=== PATIENT | female | born 1940 | race Caucasian/White ===

== ENCOUNTER → 2017-12-24 | Outpatient (CLI) | payer OTHER ==
[~2017-12-24] MED LIST: ASPI81CH6 CHEW; ATOR10TA15 PO; ENOX40P SQ; HYDR-3288 PO; LEVO150T7 PO; LYRI150C PO; MIRA50TA PO; MONT10TA4 PO; NALO1TAB2 PO; OMEP40CA2; ZOFR4TAB3 SL
== END ==
LOC: CPRE 08:43
PROVIDERS: ATTEND Orthopaedic Surgery Sports Medicine
DX: M17.11 Unilateral primary osteoarthritis, right knee (principal)

== ENCOUNTER 2018-01-03 05:55 | Observation (INO) | payer MEDICARE, OTHER ==
[~2018-01-03] VITALS: Ht 167.6 cm; Wt 86.6 kg
[~2018-01-03 05:55] MED LIST changes: -ASPI81CH6 CHEW; -ENOX40P SQ; -HYDR-3288 PO; -NALO1TAB2 PO; -ZOFR4TAB3 SL
[2018-01-03] MEDS ORDERED: DEXAMETHASONE SOD PHOS 20 MG/5 ML VIAL ONE (06:37)
[2018-01-03] MEDS ORDERED: ceFAZolin 2 GM PREMIX 50 ML ONE (06:37)
[2018-01-03] MEDS ORDERED: METOPROLOL TARTRATE 25 MG TAB PO PRN (06:45)
[2018-01-03] MEDS ORDERED: TRANEXAMIC PERI-ARTICULAR 3,000 MG/NS 100 ML P-ARTICULR SCH ×2 (06:45)
[2018-01-03] MEDS ORDERED: TRANEXAMIC ACID IV SCH (06:45)
[2018-01-03] MEDS ORDERED: POVIDONE IODINE 7.5% SCRUB 118 ML BOTTLE TOPICAL SCH (06:45)
[2018-01-03] MEDS ORDERED: ceFAZolin 2 GM PREMIX 50 ML IV SCH (06:45)
[2018-01-03] MEDS ORDERED: CHLORHEXIDINE GLUCONATE 2 % 1 PACK (2 CLOTHS) TOPICAL PRN (06:45)
[2018-01-03] MEDS ORDERED: VANCOMYCIN 1000 MG/NS 250 ML (for <70 kg) IV SCH ×2 (06:45)
[2018-01-03] MEDS ORDERED: CHLORHEXIDINE GLUCONATE 4% SOLN 120 ML BTL TOPICAL SCH (06:45)
[2018-01-03] MEDS ORDERED: LACTATED RINGER'S 1000 ML IV PRN (06:45)
[2018-01-03] MEDS ORDERED: POVIDONE IODINE 5% (ANTISEPSIS KIT) 4 APPLICATIONS EACH NARE PRN (06:45)
[2018-01-03] MEDS ORDERED: SODIUM CHLORID 0.9% 500 ML IV PRN (06:45)
[2018-01-03] MEDS ORDERED: SODIUM CHLORIDE 0.9% IV SCH (06:45)
[2018-01-03] MEDS ORDERED: ACETAMINOPHEN 1000 MG/100 ML 100 ML IV ONE (06:52)
[2018-01-03 06:58] VITALS: PULSE 58
[2018-01-03] MEDS ORDERED: ENOX40P SQ (07:00)
[2018-01-03] MEDS ORDERED: ASPI81CH6 CHEW (07:00)
[2018-01-03] MEDS ORDERED: HYDR-3288 PO (07:01)
[2018-01-03] MEDS ORDERED: GENTAMICIN SULFATE 80 MG/2 ML VIAL ONE (07:03)
[2018-01-03] MEDS ORDERED: DEXAMETHASONE SOD PHOS 20 MG/5 ML VIAL IV PUSH SCH (07:15)
[2018-01-03] MEDS ORDERED: EXPAREL PERI-ARTICULAR INJECTION (TOTAL VOL. 60 ML) P-ARTICULR SCH ×4 (07:15)
[2018-01-03] MEDS ORDERED: BUPIVACAINE HCL PF 0.5% 30 ML VIAL ONE ×2 (07:50→07:51)
[2018-01-03] MEDS ORDERED: MIDAZOLAM HCL 5 MG/5 ML VIAL ONE (07:50)
[2018-01-03] MEDS: MONTELUKAST SODIUM 10 MG TAB PO SCH (09:00)
[2018-01-03] MEDS: ATORVASTATIN 10 MG TAB PO SCH (10:00)
[2018-01-03] MEDS ORDERED: Post-op Orders (for Pharmacy) XX ONE (10:00)
[2018-01-03] MEDS: SODIUM CHLOR 0.9% 1000 ML INJ 1,000 ML IV SCH ×2 (10:00→21:41)
[2018-01-03] MEDS ORDERED: ACETAMINOPHEN/HYDROcodone 325 MG/7.5 MG TAB PO PRN (10:00)
[2018-01-03] MEDS: PREGABALIN 75 MG CAP PO SCH ×2 (10:15→21:00)
[2018-01-03] MEDS ORDERED: BISACODYL 10 MG SUPP RECTAL PRN (10:15)
[2018-01-03] MEDS ORDERED: diphenhydrAMINE HCL 50 MG/ML VIAL IV PUSH PRN (10:15)
[2018-01-03] MEDS ORDERED: DO NOT ADM ANY ANTICOAGULANT DRUGS PRN (10:18)
[2018-01-03] MEDS: LEVOTHYROXINE SODIUM 150 MCG TAB PO SCH (10:30)
[2018-01-03] MEDS ORDERED: *morphine SULFATE 10 MG/ML PERIprocedure ONLY ONE (10:58)
--- NOTE | 2018-01-03 11:12 | RADRPT ---
EXAM DATE/TIME: 01/03/2018 10:49 [place] COMPARISON: No previous studies available for comparison. INDICATIONS : Post-op right knee replacement. MEDICAL HISTORY : None. SURGICAL HISTORY : Total knee replacement, right. ENCOUNTER: Initial ACUITY: 1 day PAIN SCORE: Non-responsive. LOCATION: Right Knee FINDINGS: AP and lateral views of the right knee demonstrate changes consistent with recent total knee arthropl asty with metallic hardware in place in the distal femur and proximal tibia. There is a radiolucent p atellar component. There is soft tissue gas present, as expected. CONCLUSION: Expected changes are present following recent right total knee arthroplasty. Benjamín Terry MD on January 03, 2018 at 11:11 Board Certified Radiologist. This report was verified electronically.
[2018-01-03] MEDS: ONDANSETRON HCL 4 MG/2 ML VIAL IVP PRN ×3 (11:28→23:46)
[2018-01-03 11:31] VITALS: BP 143/71; PULSE 80; RESP 16; TEMP 96; O2SAT 94
[2018-01-03] MEDS: ACETAMINOPHEN/HYDROcodone 325 MG/7.5 MG TAB PO PRN ×3 (11:49→23:46)
[2018-01-03] MEDS ORDERED: LIDOCAINE HCL 1% PF 5 ML SYRINGE OTHER ONE (12:00)
[2018-01-03] MEDS ORDERED: MORPHINE SULFATE 4 MG/ML INJ IV PUSH PRN (12:00)
[2018-01-03] MEDS ORDERED: ROCURONIUM INJ 50 MG/5 ML SYRINGE IV PUSH ONE (12:00)
[2018-01-03] MEDS ORDERED: ONDANSETRON HCL 4 MG/2 ML VIAL IV ONE (12:00)
[2018-01-03] MEDS ORDERED: GLYCOPYRROLATE 1 MG/5 ML SYRINGE IV PUSH ONE (12:00)
[2018-01-03] MEDS ORDERED: NEOSTIGMINE 5 MG/5 ML SYRINGE IV PUSH ONE (12:00)
[2018-01-03] MEDS ORDERED: PROPOFOL 200 MG/20 ML AMP IV ONE (12:00)
[2018-01-03] MEDS: TOLTERODINE TARTRATE 4 MG CAP LA PO SCH (12:06)
[2018-01-03] MEDS: PANTOPRAZOLE SOD 40 MG DELAYED RELEASE TAB PO SCH (12:15)
[2018-01-03 13:01] VITALS: O2SAT 93
[2018-01-03 16:22] VITALS: O2SAT 93
[2018-01-03 16:50] VITALS: BP 119/56; PULSE 68; RESP 17; TEMP 95; O2SAT 95
[2018-01-03] MEDS ORDERED: METOCLOPRAMIDE HCL 10 MG/2 ML VIAL IV PUSH PRN (18:15)
--- NOTE | 2018-01-03 18:16 | PD.CONS ---
[facility] By Dr[facility] Leiva Reason for Consult Medical management Primary Care Physician Vicky Guerrier MD Diagnoses: History of Present Illness Patient is a 77-year-old female with past medical history of hyperlipidemia, hypothyroidism, seasonal allergies, overactive bladder, fibromyalgia is currently admitted under the care of the orthopedic surgery service. Patient is status post right total knee arthroplasty. Patient tells me that she was diagnosed with arthritis, was experiencing pain, tried conservative management with not much success and opted for surgical management. Patient is postop day 0 from a total knee arthroplasty on the right. Patient complains mainly of nausea and had some vomiting postop. Vomiting has not resolved and nausea is much better controlled. Pain is controlled. She does complain of is "scratchy throat" but otherwise feels fine. She denies any chest pain, shortness of breath, burning w urination or increase in urinary frequency. Review of Systems Except as stated in HPI: all other systems reviewed are Neg Past Family Social History Allergies: Coded Allergies: diclofenac (Verified Allergy, Unknown, TONGUE FELT THICK, 12/24/17) tramadol (Verified Allergy, Unknown, NAUSEA, 12/24/17) Past Medical History hyperlipidemia, hypothyroidism, seasonal allergies, overactive bladder, fibromyalgia Past Surgical History Right total knee arthroplasty, and upper teeth removal many years ago. Reported Medications Reported Meds & Active Scripts Active [place] (Hydrocodone-Acetaminophen) 7.5-325 mg Tab 1-2 Tab PO Q6H PRN Lovenox Inj (Enoxaparin Sodium) 40 Mg/0.4 Ml Syr 40 Mg SQ DAILY 14 Days Lovenox Inj (Enoxaparin Sodium) 40 Mg/0.4 Ml Syr 40 Mg SQ DAILY Aspirin Low Dose (Aspirin) 81 Mg Chew 81 Mg CHEW BID 30 Days Reported Myrbetriq (Mirabegron) 50 Mg Tab 50 Mg PO DAILY Levothyroxine (Levothyroxine Sodium) 150 Mcg Tab 150 Mcg PO DAILY Atorvastatin (Atorvastatin Calcium) 10 Mg Tab 10 Mg PO DAILY Lyrica (Pregabalin) 150 Mg Cap 150 Mg PO BID Montelukast (Montelukast Sodium) 10 Mg Tab 10 Mg PO DAILY Omeprazole 40 Mg Cap 40 Mg DAILY Family History Mother had Parkinson's disease, father was diagnosed with an "enlarged heart" Social History Patient denies any smoking history, denies illegal drug use, and rarely drinks alcohol Physical Exam Vital Signs Vital Signs Date Time Temp Pulse Resp B/P (MAP) Pulse Ox O2 Delivery O2 Flow Rate FiO2 01/03/18 16:50 95.0 68 17 119/56 (77) 95 01/03/18 16:22 93 21 01/03/18 13:01 93 01/03/18 11:31 96.0 80 16 143/71 (95) 94 01/03/18 11:15 97.9 63 20 142/62 (88) 93 Nasal Cannula 3 01/03/18 11:00 65 20 140/33 (68) 92 Nasal Cannula 3 01/03/18 10:45 60 20 126/62 (83) 92 Nasal Cannula 3 01/03/18 10:30 65 20 117/59 (78) 92 01/03/18 10:19 97.9 79 20 132/65 (87) 90 Simple Mask 6 01/03/18 06:58 58 01/03/18 06:24 97.8 66 20 147/69 (95) 95 Physical Exam GENERAL: Very pleasant female, laying in bed, appears comfortable SKIN: No rashes, ecchymoses or lesions. Cool and dry. HEAD: Atraumatic. Normocephalic. No temporal or scalp tenderness. EYES: Pupils equal round and reactive. Extraocular motions intact. No scleral icterus. No injection or drainage. ENT: Nose without drainage. Throat without erythema, tonsillar hypertrophy or exudate. Uvula midline. Airway patent. NECK: Trachea midline. CARDIOVASCULAR: Regular rate and rhythm without murmurs RESPIRATORY: Clear to auscultation. Breath sounds equal bilaterally. No wheezes GASTROINTESTINAL: Abdomen soft, non-tender, nondistended. No guarding. MUSCULOSKELETAL: Right knee with dressing in place, dry clean and intact. Able to wiggle her toes, sensation is intact. NEUROLOGICAL: Awake and alert. Normal speech. Imaging Last Impressions Knee X-Ray 01/03/18 0654 Signed Impressions: Service Date/Time: Wednesday, January 03, 2018 10:49 - CONCLUSION: Expected changes are present following recent right total knee arthroplasty. Benjamín Terry MD Assessment and Plan Assessment and Plan Right total knee arthroplasty: Postop day 0. Pain control, rehabilitation, DVT prophylaxis and antibiotics per orthopedic surgery team. Stool softeners available. I have encouraged use of IS q1hr while awake and explained to her the importance of using it. Monitor H&H post op. Other chronic medical problems i.e. hyperlipidemia, hypothyroidism, seasonal allergies, overactive bladder, fibromyalgia: Stable. Home meds have been resumed. Postop nausea/vomiting: Seems to be resolving. Patient has Zofran as needed. I have added Reglan IV every 8hrs as needed in case the Zofran does not work Thank you for allowing me to take part of Mrs. Zaragoza's care, hospitalist team will continue to follow. Code Status full Discussed Condition With patient, and grand-daughter Tisha Rodriguez MD Jan 03, 2018 18:16
--- NOTE | 2018-01-03 19:39 | MP ---
cc: KAMALA DHALIWAL M.D. DATE OF SURGERY: 01/03/2018 PREOPERATIVE DIAGNOSIS: Right knee osteoarthritis POSTOPERATIVE DIAGNOSES Right knee osteoarthritis. PROCEDURE Right total knee arthroplasty SURGEON Dr. Kamala Dhaliwal. PATENT PROSECUTION ATTORNEY: JOSEPHINE Pizano ANESTHESIA General with a femoral nerve block. BLOOD LOSS 100 cc TOURNIQUET TIME: 25 minutes at 250 mmHg. COMPLICATIONS None. IMPLANTS: DePuy Attune size 5, posterior stabilized femoral component size 5, rotating platform tibia baseplate, size 7 mm polyethylene tibial insert, size 35 mm patella. JUSTIFICATION The patient is a 77 year old female who has a history of severe end stage osteoarthritis involving the right knee. She has severe disabling pain with standing, walking, ambulation, weight bear activities, even pain at rest. She has failed geater than three months of nonoperative conservative treatment to include medications, therapy, injections, ambulatory assisted aids, home exercise program, activity modification, weight loss. X-rays of the right knee reveals severe end-stage osteoarthritis with [id number] joint space narrowing, subchondral sclerosis, subchondral osteophyte formation, and subluxation. The patient was counseled as to the risks, benefits, alternatives to total knee arthroplasty. The risks were discussed which include but are not limited to anesthesia, bleeding, infection, damage to nerves and blood vessels, pain, stiffness, failure of the components, blood clot, pulmonary embolism, and even . The patient's pain was severe. She favored the benefits over the risks and did wish to proceed with surgery. PROCEDURE IN DETAIL A written consent was obtained. The patient was identified by name, taken to the operating room and placed supine on the operating table. General anesthesia was administered as well as 2 grams of IV Ancef and 1 gram of IV vancomycin. A well-padded tourniquet was placed on the right thigh. The right lower extremity was prepped and draped using isopropyl alcohol, Hibiclens solution and ChloraPrep solution. After time out was performed, an Esmarch bandage was used to exsanguinate the right lower extremity. Tourniquet inflated to 250 mmHg. A longitudinal incision was made over the anterior aspect of the right knee. A medial parapatellar arthrotomy incision was performed. The patella was everted. Patella resection guide was used to resect 7 millimeters of patella. The size 35 millimeter guide was placed. Three drill holes were placed and the 35 mm patella trial fit well. Attention was turned to the femur where an intramedullary guide josef was placed. The distal femoral guide was set to remove 11 mm off the distal femur, 5 degrees off the anatomic valgus axis alignment. An oscillating saw was used to perform the distal femoral cut. Attention was turned to the tibia where an extramedullary tibial guide was set to remove 5 mm off the lowest portion of the medial tibial plateau. The tibia guide was pinned in place and tibia cut was performed. The 5 mm spacer block showed full extension. Attention was turned back to the femur where the AP sizing block measured a size 5. The anterior reference 3 degree external rotation guide was used to pin a size [address] The anterior, posterior and chamfer cuts were performed. A size 5 PCL box guide was pinned in place and the PCL was boxed in with an oscillating saw. The medial and lateral meniscus remnants were removed as well as bone and soft tissue debris from the posterior portion of the knee. The size 5 tibia baseplate was pinned in place. The tibia was drilled and punched. Trial components were evaluated and final components cemented in place. With the current components the leg could achieve full extension, 0 degrees of flexion to 140. No evidence of tibial lift-off, varus-valgus, balance appeared appropriate and symmetric. With the tourniquet deflated, Bovie cautery was used for hemostasis. The surgical wounds thoroughly irrigated with sterile saline, pulse lavage, antibiotic impregnated solution. The arthrotomy incision was closed with #1 Vicryl suture. The subcutaneous layer with 2-0 Vicryl suture and skin was closed with Dermabond. Sterile dressing applied. The patient tolerated the procedure well. No intraoperative complication noted. Jesus Bynum, physician offset assistant press operator certified, was present during the entire procedure to include patient positioning and the procedure itself. The medical necessity of a physician offset assistant press operator was indicated in this case due to the complexity of the procedure itself. He assisted with appropriate manipulation of the leg and also retraction of muscle, tendon, bone and neurovascular structures. He assisted with both preparation of bone cuts and also implantation of the prosthetic replacement. MD MAT Hogan/NATHAN /9:50 AM /7:22 PM
[2018-01-03 20:10] VITALS: BP 135/66; PULSE 73; RESP 17; TEMP 96.8; O2SAT 93
[2018-01-03] MEDS ORDERED: ZOLPIDEM TARTRATE 5 MG TAB PO PRN (21:00)
[2018-01-04 00:10] VITALS: BP 120/63; PULSE 75; RESP 18; TEMP 96.9; O2SAT 95
[2018-01-04 04:05] VITALS: BP 119/53; PULSE 91; RESP 17; TEMP 97.4; O2SAT 93
[2018-01-04] MEDS ORDERED: DOCUSATE SODIUM 50 MG/SENNA 8.6 MG TAB PO PRN (04:15)
[2018-01-04] MEDS: LEVOTHYROXINE SODIUM 150 MCG TAB PO SCH (05:35)
[2018-01-04] MEDS: ACETAMINOPHEN/HYDROcodone 325 MG/7.5 MG TAB PO PRN ×2 (05:36→09:30)
[2018-01-04] MEDS: SODIUM CHLOR 0.9% 1000 ML INJ 1,000 ML IV SCH ×2 (06:00→09:14)
[2018-01-04 07:45] VITALS: BP 136/70; PULSE 74; RESP 18; TEMP 97.3; O2SAT 95
--- NOTE | 2018-01-04 08:28 | PD.ORT.PN ---
Subjective Post Op Day #: 1 Subjective Remarks pain tolerable. n/v much improved. Objective Vitals Vital Signs Date Time Temp Pulse Resp B/P (MAP) Pulse Ox O2 Delivery O2 Flow Rate FiO2 01/04/18 07:46 Room Air 01/04/18 07:45 97.3 74 18 136/70 (92) 95 01/04/18 04:05 97.4 91 17 119/53 (75) 93 01/04/18 00:10 96.9 75 18 120/63 (82) 95 01/03/18 20:10 96.8 73 17 135/66 (89) 93 01/03/18 19:03 Room Air 01/03/18 16:50 95.0 68 17 119/56 (77) 95 01/03/18 16:22 93 21 01/03/18 13:01 93 01/03/18 11:31 96.0 80 16 143/71 (95) 94 01/03/18 11:15 97.9 63 20 142/62 (88) 93 Nasal Cannula 3 01/03/18 11:00 65 20 140/33 (68) 92 Nasal Cannula 3 01/03/18 10:45 60 20 126/62 (83) 92 Nasal Cannula 3 01/03/18 10:30 65 20 117/59 (78) 92 01/03/18 10:19 97.9 79 20 132/65 (87) 90 Simple Mask 6 I/O 01/03/18 01/03/18 01/03/18 01/04/18 01/04/18 01/04/18 07:00 15:00 23:00 07:00 15:00 23:00 Intake Total 900 ml 760 ml 1000 ml Output Total 750 ml 1575 ml Balance 150 ml -815 ml 1000 ml Intake Oral 240 ml 360 ml IV Total 900 ml 520 ml 640 ml Output Urine Total 600 ml 1175 ml Emesis 400 ml Estimated Blood Loss 150 ml # Voids 1 # Bowel Movements 0 0 Objective Remarks in bed, nad dressing c/d/i neg homans nvi Assessment & Plan Ortho Post Op Day #: 1 Problem List: Assessment and Plan s/p R TKA wbat ok to maintain dressing unless saturated lovenox d/c planning home with [facility]hc and pt - cleared today if does well in PT rx in chart f/up dr. odonnell 2 weeks Keegan Bynum Jan 04, 2018 08:28
--- NOTE | 2018-01-04 08:30 | HHI.DCPOC ---
Discharge Care Plan Diagnosis: (1) Primary localized osteoarthrosis, lower leg Your Health Problems Are: Difficulty with ADL Goals to Promote Your Health * To prevent worsening of your condition and complications * To maintain your health at the optimal level Directions to Meet Your Goals Take your medications as prescribed Follow your dietary instruction Follow activity as directed Keep your appointments as scheduled Take your immunizations and boosters as scheduled If your symptoms worsen call your PCP, if no PCP go to Urgent Care Center or Emergency Room Smoking is Dangerous to Your Health. Avoid second hand smoke Call the 24-hour hour crisis hotline for domestic abuse at Keegan Bynum Jan 04, 2018 08:30
--- NOTE | 2018-01-04 08:31 | HHI.FF ---
Face to Face Verification Diagnosis: (1) Primary localized osteoarthrosis, lower leg Physical Therapy Gait training, Safety evaluation, Transfer training, bed to chair Knee: Total knee, Protocol: Right, Full weight bearing Right LE Weight Bearing: WB as tolerated Nursing RN: 3 days/week x 2 weeks Nursing: Emir teaching, Dressing changes Dressing Changes: Daily dressing change Additional Instructions ok to maintain dressing unless saturated I have seen patient Yaima Zaragoza on 01/04/18. My clinical findings support the need for the requested home health care services because: Limited ability to care for self High risk of falls I certify that my clinical findings support that this patient is homebound because: Post-op weakness Unsteady gait/balance Keegan Bynum Jan 04, 2018 08:31
[2018-01-04 08:45] VITALS: O2SAT 97
[2018-01-04] MEDS: TOLTERODINE TARTRATE 4 MG CAP LA PO SCH (08:46)
[2018-01-04] MEDS: PANTOPRAZOLE SOD 40 MG DELAYED RELEASE TAB PO SCH (08:46)
[2018-01-04] MEDS: PREGABALIN 75 MG CAP PO SCH (08:46)
[2018-01-04] MEDS: ATORVASTATIN 10 MG TAB PO SCH (08:46)
[2018-01-04] MEDS: MONTELUKAST SODIUM 10 MG TAB PO SCH (08:47)
[2018-01-04] MEDS ORDERED: PNEUMOCOCCAL POLYVALENT INJ 25 MCG/0.5 ML SYR IM ONE (10:00)
[2018-01-04] MEDS ORDERED: ENOXAPARIN SODIUM 40 MG/0.4 ML SYRINGE SQ SCH (10:00)
[2018-01-04 10:41] LABS: BICARBONATE 23.9 MEQ/L (21.0-32.0); CALCIUM 8.2 MG/DL (8.5-10.1); CREATININE 0.82 MG/DL (0.50-1.00)
[2018-01-04 10:47] LABS: HEMOGLOBIN 12.8 GM/DL (11.6-15.3); MEAN CELL VOLUME 87.7 FL (80.0-100.0); MEAN CORPUSCULAR HEMOGLOBIN 29.5 PG (27.0-34.0); MEAN CORPUSCULAR HGB CONC 33.6 % (32.0-36.0); MEAN PLATELET VOLUME 9.8 FL (7.0-11.0); PLATELET COUNT 156 TH/MM3 (150-450); RED BLOOD COUNT 4.33 MIL/MM3 (4.00-5.30); RED CELL DISTRIBUTION WIDTH 14.5 % (11.6-17.2); WHITE BLOOD COUNT 13.4 TH/MM3 (4.0-11.0)
[2018-01-04] MEDS ORDERED: ZOFR4TAB3 SL (11:51)
--- NOTE | 2018-01-04 11:55 | HHI.PR ---
Subjective Remarks f/u for knee surgery patient c/o feeling nausea after surgery. she stated Zofran helped and that she is very sensitive to medication. no other complaints. discussed case with patient's nurse who stated she gets nauseous with pain medication. patient is discharge by the attending. no other complaints. Objective Vitals Vital Signs Date Time Temp Pulse Resp B/P (MAP) Pulse Ox O2 Delivery O2 Flow Rate FiO2 01/04/18 08:45 97 21 01/04/18 07:46 Room Air 01/04/18 07:45 97.3 74 18 136/70 (92) 95 01/04/18 04:05 97.4 91 17 119/53 (75) 93 01/04/18 00:10 96.9 75 18 120/63 (82) 95 01/03/18 20:10 96.8 73 17 135/66 (89) 93 01/03/18 19:03 Room Air 01/03/18 16:50 95.0 68 17 119/56 (77) 95 01/03/18 16:22 93 21 01/03/18 13:01 93 I/O 01/03/18 01/03/18 01/03/18 01/04/18 01/04/18 01/04/18 07:00 15:00 23:00 07:00 15:00 23:00 Intake Total 900 ml 760 ml 1000 ml Output Total 750 ml 1575 ml Balance 150 ml -815 ml 1000 ml Intake Oral 240 ml 360 ml IV Total 900 ml 520 ml 640 ml Output Urine Total 600 ml 1175 ml Emesis 400 ml Estimated Blood Loss 150 ml # Voids 1 # Bowel Movements 0 0 Result Diagram: 01/04/18 1008 01/04/18 1008 Objective Remarks GENERAL: in NAD CARDIOVASCULAR: Regular rate and rhythm without murmurs, gallops, or rubs. RESPIRATORY: Breath sounds equal bilaterally. No accessory muscle use. GASTROINTESTINAL: Abdomen soft, non-tender, nondistended. MUSCULOSKELETAL: right leg in bandage BACK: Nontender without obvious deformity. No CVA tenderness. Medications and IVs Current Medications Lactated Ringer's 1,000 ml @ 30 mls/hr Q24H PRN IV SEE LABEL COMMENTS Last administered on 01/03/18at 07:00; Start 01/03/18 at 06:45; Stop 01/06/18 at 06:44 Sodium Chloride 500 ml @ 30 mls/hr [id number] PRN IV SEE LABEL COMMENTS; Start at 06:45; Stop 01/06/18 at 06:44 Metoprolol Tartrate (Lopressor) 25 mg GENERAL FOUNDRY WORKER PRN PO SEE LABEL COMMENTS; Start 01/03/18 at 06:45; Stop 01/06/18 at 06:44 Povidone Iodine (Betadine 5% Antisepsis Kit) 1 applic GENERAL FOUNDRY WORKER PRN EACH NARE SEE LABEL COMMENTS Last administered on 01/03/18at 06:45; Start 01/03/18 at 06:45 ; Stop 01/06/18 at 06:44 Chlorhexidine Gluconate (Chlorhexidine 2% Cloth) 3 pack GENERAL FOUNDRY WORKER PRN TOPICAL SEE LABEL COMMENTS Last administered on 01/03/18at 06:00; Start 01/03/18 at 06:45 ; Stop 01/06/18 at 06:44 Povidone Iodine (Betadine 7.5% Scrub) 1 applic ONCE TOPICAL Last administered on 01/03/18at 07:15; Start 01/03/18 at 06:45; Stop 01/06/18 at 06:44 Chlorhexidine Gluconate (Hibiclens 4% Top Soln) 1 applic ONCE TOPICAL ; Start at 06:45; Stop 01/06/18 at 06:44 Cefazolin Sodium/ Dextrose 50 ml @ 100 mls/hr GENERAL FOUNDRY WORKER IV Last administered on 01/03/18at 08:02; Start 01/03/18 at 06:45; Stop 01/06/18 at 06:44 Vancomycin HCl 1000 mg/Sodium Chloride 250 ml @ 250 mls/hr GENERAL FOUNDRY WORKER IV ; Start 01/03/18 at 06:45; Stop 01/06/18 at 06:44 Tranexamic Acid 1299 mg/Sodium Chloride 112.99 ml @ 200 mls/ hr ONCE IV Last administered on 01/03/18at 08:23; Start 01/03/18 at 06:45; Stop 01/04/18 at 06:44 ; Status DC Tranexamic Acid 3000 mg/Sodium Chloride 130 ml @ 260 mls/hr ONCE P-ARTICULR Last administered on 01/03/18at 09:00; Start 01/03/18 at 06:45; Stop 01/04/18 at 06:44; Status DC Cefazolin Sodium/ Dextrose 50 ml @ As Directed STK-MED ONCE .ROUTE ; Start 01/03 at 06:37; Stop 01/03/18 at 06:38; Status DC Dexamethasone Sodium Phosphate (Decadron Inj) 20 mg STK-MED ONCE .ROUTE ; Start 01/03/18 at 06:37; Stop 01/03/18 at 06:38; Status DC Acetaminophen 100 ml @ As Directed STK-MED ONCE IV ; Start 01/03/18 at 06:52; Stop 01/03/18 at 06:53; Status DC Atorvastatin Calcium (Lipitor) 10 mg DAILY PO Last administered on 01/04/18at 08 :46; Start 01/03/18 at 10:00 Levothyroxine Sodium (Synthroid) 150 mcg DAILY@0600 PO Last administered on at 05:35; Start 01/03/18 at 10:30 Montelukast Sodium (Singulair) 10 mg DAILY PO Last administered on 01/04/18at 08 :47; Start 01/03/18 at 09:00 Pregabalin (Lyrica) 150 mg BID PO Last administered on 01/04/18at 08:46; Start 01/03/18 at 10:15 Tolterodine Tartrate (Detrol La) 4 mg DAILY PO Last administered on 01/04/18at 08:46; Start 01/03/18 at 12:15 Pantoprazole Sodium (Protonix) 40 mg DAILY PO Last administered on 01/04/18at 08 :46; Start 01/03/18 at 12:15 Sodium Chloride 1,000 ml @ 100 mls/hr Q10H IV Last administered on 01/03/18at 21:41; Start 01/03/18 at 10:00 Cefazolin Sodium 1000 mg/Sodium Chloride 100 ml @ 200 mls/hr Q6H IV Last administered on 01/04/18at 01:35; Start 01/03/18 at 14:00; Stop 01/04/18 at 02:29 ; Status DC Miscellaneous Information (Post-op Orders (for Pharmacy)) STAT ONCE XX ; Start 01/03/18 at 10:00; Stop 01/03/18 at 10:01; Status DC Enoxaparin Sodium (Lovenox Inj) 40 mg Q24H SQ Last administered on 01/04/18at 09 :30; Start 01/04/18 at 10:00 Morphine Sulfate (Morphine Inj) 3 mg Q3H PRN IV PUSH BREAKTHROUGH PAIN Last administered on 01/04/18at 01:36; Start 01/03/18 at 12:00 Acetaminophen/ Hydrocodone Bitart (Wing 7.5-325 Mg) 1 tab Q4H PRN PO PAIN LESS THAN 5 ON SCALE Last administered on 01/04/18at 09:30; Start 01/03/18 at 10: 00 Acetaminophen/ Hydrocodone Bitart (Wing 7.5-325 Mg) 2 tab Q4H PRN PO PAIN SCALE 5 TO 10; Start 01/03/18 at 10:00 Multivitamins/ Minerals Therapeutic (Theragran M Tab) 1 tab BID PO ; Start 01/04 at 21:00; Stop 03/05/18 at 20:59 Ondansetron HCl (Zofran Inj) 4 mg Q6H PRN IVP NAUSEA OR VOMITING Last administered on 01/03/18at 23:46; Start 01/03/18 at 10:00 Docusate Sodium (Colace) 100 mg BID PO ; Start 01/04/18 at 21:00 Zolpidem Tartrate (Ambien) 5 mg HS PRN PO SLEEP; Start 01/03/18 at 21:00 Bisacodyl (Dulcolax Supp) 10 mg DAILY PRN RECTAL CONSTIPATION; Start 01/03/18 at 10:15 Diphenhydramine HCl (Benadryl Inj) 25 mg Q6H PRN IV PUSH ITCHING; Start at 10:15 Gentamicin Sulfate (Gentamicin Inj) 240 mg STK-MED ONCE .ROUTE Last administered on 01/03/18at 09:00; Start 01/03/18 at 07:03; Stop 01/03/18 at 07:04 ; Status DC Bupivacaine Liposome 20 ml/ Sodium Chloride 60 ml @ 120 mls/hr ONCE P-ARTICULR ; Start 01/03/18 at 07:15; Stop 01/04/18 at 07:14; Status Cancel Dexamethasone Sodium Phosphate (Decadron Inj) 10 mg ONCE IV PUSH Last administered on 01/03/18at 06:45; Start 01/03/18 at 07:15; Stop 01/03/18 at 21:00 ; Status DC Bupivacaine Liposome 20 ml/ Sodium Chloride 60 ml @ 120 mls/hr ONCE P-ARTICULR Last administered on 01/03/18at 09:00; Start 01/03/18 at 07:15; Stop 01/04/18 at 07:14; Status DC Midazolam HCl (Versed Inj) 5 mg STK-MED ONCE .ROUTE ; Start 01/03/18 at 07:50; Stop 01/03/18 at 07:51; Status DC Bupivacaine HCl (Marcaine Pf 0.5% Inj) 30 ml STK-MED ONCE .ROUTE ; Start at 07:50; Stop 01/03/18 at 07:51; Status DC Bupivacaine HCl (Marcaine Pf 0.5% Inj) 30 ml STK-MED ONCE .ROUTE ; Start at 07:51; Stop 01/03/18 at 07:52; Status DC Fentanyl Citrate (fentaNYL INJ) 200 mcg STK-MED ONCE .ROUTE ; Start 01/03/18 at 10:32; Stop 01/03/18 at 10:33; Status DC Miscellaneous Information ALL NURSING DEPARTME... UNSCH PRN .XX SEE LABEL COMMENTS; Start 01/03/18 at 10:18; Stop 01/04/18 at 10:17; Status DC Morphine Sulfate (*morphine INJ PERIprocedure ONLY) 10 mg STK-MED ONCE .ROUTE Last administered on 01/03/18at 10:58; Start 01/03/18 at 10:58; Stop 01/03/18 at 10:59; Status DC Pneumococcal Polyvalent Vaccine (Pneumovax-23 Inj) 25 mcg ONCE ONCE IM ; Start 01/04/18 at 10:00; Stop 01/04/18 at 10:01; Status DC Metoclopramide HCl (Reglan Inj) 10 mg Q8H PRN IV PUSH NAUSEA OR VOMITING Last administered on 01/03/18at 21:41; Start 01/03/18 at 18:15 Senna/Docusate Sodium (Jess-Colace) 2 tab BID PRN PO MODERATE CONSTIPATION Last administered on 01/04/18at 08:46; Start 01/04/18 at 04:15 A/P Assessment and Plan Right total knee arthroplasty -s/p Postop day 1. -management per Ortho. patient discharged today. post op nausea -due to general anesthesia and pain medication. Continue Zofran as needed. Seems to be improving. hyperlipidemia, hypothyroidism, seasonal allergies, overactive bladder, fibromyalgia: -Stable continue with home medication. Patient is medically clear for discharge. Discussed case with patient's nurse. Chely Mckinney MD Jan 04, 2018 11:55
[2018-01-04 12:00] VITALS: BP 150/74; PULSE 84; RESP 18; TEMP 96.9; O2SAT 92
[2018-01-04] MEDS ORDERED: ONDANSETRON ODT 4 MG TAB PO PRN (12:00)
[2018-01-04] MEDS ORDERED: MULTIVITAMINS/MINERALS THERAPEUTIC TAB PO SCH (21:00)
[2018-01-04] MEDS ORDERED: DOCUSATE SODIUM 100 MG CAP PO SCH (21:00)
== END 2018-01-04 14:44 | disposition home health service (06) ==
LOC: HSDC 05:55 → INTOOBSV 06:55 → HSDI 06:55 → N06B 11:35
PROVIDERS: ADMIT Orthopaedic Surgery Sports Medicine; ATTEND Orthopaedic Surgery Sports Medicine
DX: M17.11 Unilateral primary osteoarthritis, right knee (principal); E78.5 Hyperlipidemia, unspecified; E03.9 Hypothyroidism, unspecified; M79.7 Fibromyalgia; K21.9 Gastro-esophageal reflux disease without esophagitis; J30.2 Other seasonal allergic rhinitis; N32.81 Overactive bladder; E66.9 Obesity, unspecified; Z79.899 Other long term (current) drug therapy; Z79.82 Long term (current) use of aspirin; Z23 Encounter for immunization
CPT/HCPCS: 00400; 27447; 64450; 73560; 80048; 85027; 86850; 86900; 86901; 94150; 96361; 96365; 96366; 96372; 96375; 96376; 97110; 97116; 97150; 97162; C1776; C9290; G0378; G8987; G8988; J0131; J0690; J1100; J1580; J1650; J2250; J2270; J2405; J2710; J2765; J3010; J7030; J7120; L1830; 90471; G0009

== ENCOUNTER 2018-01-06 05:17 | Emergency (ER) | payer OTHER ==
[~2018-01-06] VITALS: Ht 162.6 cm; Wt 90.0 kg
[~2018-01-06 05:17] MED LIST changes: +ASPI81CH6 CHEW; +ENOX40P SQ; +HYDR-3288 PO; +ZOFR4TAB3 SL
[2018-01-06 05:21] VITALS: BP 145/69; PULSE 101; RESP 16; O2SAT 94
--- NOTE | 2018-01-06 05:46 | PD ---
HPI Chief Complaint: Abdominal Pain Time Seen by Provider: 05:22 Travel History International Travel<30 days: No Contact w/Intl Traveler<30days: No Traveled to known affect area: No History of Present Illness HPI Patient is a 77-year-old female who just had a total knee replacement week ago right-sided and she is home with bowel prep without any relief of her symptoms which is constipation and severe pressure in her suprapubic and rectal area. She is taking Colace and she is taking MiraLAX without relief she has not moved her bowels in a week she says. Pressure is severe and it is pulsatile when it comes spasm-like and then her release for a while and she feels it in her lower left quadrant her pubic area and her rectum. Patient has no history of diverticulitis no history of pancreatitis no history of gallbladder disease or gastritis all seems to be secondary to the pain medication she is taking for her knee postoperative Krzysztof slowing her bowels and causing severe constipation with now pain PFSH Past Medical History Arthritis: Yes Asthma: No Autoimmune Disease: No Anxiety: No Depression: No Heart Rhythm Problems: No Cancer: No Cardiovascular Problems: Yes High Cholesterol: Yes (ON STATIN) Chest Pain: No Congestive Heart Failure: No COPD: No Cerebrovascular Accident: No Diabetes: No Endocrine: Yes (HYPOTHYROID) Gastrointestinal Disorders: Yes GERD: Yes Genitourinary: No Hepatitis: No Hiatal Hernia: No Immune Disorder: No Implanted Vascular Access Dvce: Yes Kidney Stones: No Musculoskeletal: Yes Neurologic: Yes Psychiatric: No Reproductive: No Respiratory: No Migraines: No Renal Failure: No Seizures: No Sickle Cell Disease: No Thyroid Disease: Yes (HYPOTHYROID) Ulcer: No Past Surgical History Abdominal Surgery: No AICD: No Arteriovenous Shunt: No Cardiac Surgery: No Genitourinary Surgery: No Insulin Pump: No Joint Replacement: Yes (RTK) Oral Surgery: Yes (TEETH REMOVAL) Pacemaker: No Thoracic Surgery: No Other Surgery: Yes (DENTAL WORK, CURRENT SURGERY RTK) Social History Alcohol Use: No Tobacco Use: No Substance Use: No Allergies-Medications (Allergen,Severity, Reaction): Coded Allergies: diclofenac (Verified Allergy, Unknown, TONGUE FELT THICK, 01/06/18) tramadol (Verified Allergy, Unknown, NAUSEA, 01/06/18) Reported Meds & Prescriptions Reported Meds & Active Scripts Active Movantik (Naloxegol) 25 Mg Tab 25 Mg PO DAILY Zofran Odt (Ondansetron Odt) 4 Mg Tab 4 Mg SL Q6HR PRN Sidney (Hydrocodone-Acetaminophen) 7.5-325 mg Tab 1-2 Tab PO Q6H PRN Lovenox Inj (Enoxaparin Sodium) 40 Mg/0.4 Ml Syr 40 Mg SQ DAILY 14 Days Lovenox Inj (Enoxaparin Sodium) 40 Mg/0.4 Ml Syr 40 Mg SQ DAILY Aspirin Low Dose (Aspirin) 81 Mg Chew 81 Mg CHEW BID 30 Days Reported Myrbetriq (Mirabegron) 50 Mg Tab 50 Mg PO DAILY Levothyroxine (Levothyroxine Sodium) 150 Mcg Tab 150 Mcg PO DAILY Atorvastatin (Atorvastatin Calcium) 10 Mg Tab 10 Mg PO DAILY Lyrica (Pregabalin) 150 Mg Cap 150 Mg PO BID Montelukast (Montelukast Sodium) 10 Mg Tab 10 Mg PO DAILY Omeprazole 40 Mg Cap 40 Mg DAILY Review of Systems Except as stated in HPI: all other systems reviewed are Neg Gastrointestinal: Positive: Constipation Physical Exam Narrative GENERAL: Patient is in pain holding her suprapubic area and lying very still trying not to move her right knee as well SKIN: Warm and dry. HEAD: Atraumatic. Normocephalic. EYES: Pupils equal and round. No scleral icterus. No injection or drainage. ENT: No nasal bleeding or discharge. Mucous membranes pink and moist. NECK: Trachea midline. No JVD. CARDIOVASCULAR: Regular rate and rhythm. RESPIRATORY: No accessory muscle use. Clear to auscultation. Breath sounds equal bilaterally. GASTROINTESTINAL: Abdomen suprapubic distended and tender LLQ and mild rectal pain . RECTAL exam hard stool , manual removal of brown small rock like fecal pieces . Hepatic and splenic margins not palpable. MUSCULOSKELETAL: Extremities R knee patient's right knee has a noninfected non- that he stopped right knee midline scar wound looks clean and noninfected NEUROLOGICAL: Awake and alert. No obvious cranial nerve deficits. Motor grossly within normal limits. Five out of 5 muscle strength in the arms and legs. Normal speech. PSYCHIATRIC: Appropriate mood and affect; insight and judgment normal. Data Data Last Documented VS Orders Orders Abdomen, Flat & Upright (01/06/18 ) Bucket, Enema Cleansing Ea (01/06/18 05:46) Ondansetron Odt (Zofran Odt) (3/1/18 06:30) Ed Discharge Order (01/06/18 09:02) MDM Medical Decision Making Medical Screen Exam Complete: Yes Emergency Medical Condition: Yes Differential Diagnosis costipation from opioid usage for knee surgery vs immobility constipation lack of bowel stimulation , vs SBO or colonic fecal impaction ileus Narrative Course pt rectal exam by this MD and hard balls of stool encountered ,, manual disempaction done with minimal result of stool produced,, then soap suds enema started and pt stillawaiting BM on bed blount.. shift change signed out to on coming attending Diagnosis Primary Impression: Constipation Additional Impression: Constipation due to pain medication Scripts Naloxegol (Movantik) 25 Mg Tab 25 MG PO DAILY for Prevent Constipation, #30 TAB 0 Refills Prov: Jack Rhoades MD 01/06/18 Angelo Rodríguez MD Jan 06, 2018 05:46
[2018-01-06] MEDS ORDERED: ONDANSETRON ODT 4 MG TAB PO ONE (06:30)
--- NOTE | 2018-01-06 06:42 | RADRPT ---
EXAM DATE/TIME: 01/06/2018 06:30 [facility] COMPARISON: No previous studies available for comparison. INDICATIONS : Post surgery constipation for one week. MEDICAL HISTORY : None. SURGICAL HISTORY : Total knee replacement, right. ENCOUNTER: Initial ACUITY: 1 week PAIN SCORE: 0/10 LOCATION: Abdomen FINDINGS: Supine and upright views of the abdomen were performed. Moderate amount of stool in the distal colon. No dilated loops of bowel. No significant air-fluid levels. No pneumatosis or free air. 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 No abnormal calcifications. CONCLUSION: 1. Moderate stool in the distal colon consistent with constipation. 2. No dilated loops of bowel to suggest bowel obstruction. Aravind Odom MD on January 06, 2018 at 6:39 Board Certified Radiologist. This report was verified electronically.
[2018-01-06 07:38] VITALS: BP 130/62; PULSE 90; RESP 17; TEMP 97.6; O2SAT 97
[2018-01-06] MEDS ORDERED: NALO1TAB2 PO (08:16)
--- NOTE | 2018-01-06 08:17 | PD ---
Data Data Last Documented VS Vital Signs Date Time Temp Pulse Resp B/P (MAP) Pulse Ox O2 Delivery O2 Flow Rate FiO2 01/06/18 07:38 97.6 90 17 130/62 (84) 97 Nasal Cannula 2.00 Orders Orders Abdomen, Flat & Upright (01/06/18 ) Bucket, Enema Cleansing Ea (01/06/18 05:46) Ondansetron Odt (Zofran Odt) (01/06/18 06:30) Ed Discharge Order (01/06/18 09:02) [facility] Medical Record Reviewed: Yes Supervised Visit with LORI: No Narrative Course Please refer to the ongoing provider documentation. The abdominal x-ray reveals moderate constipation with no evidence obstruction. Hard stool was disimpacted. Patient found to be resting comfortably at 7:55 AM. The provided much of the historical details the patient was very sleepy at the time of my exam. At that time the patient was able to report persistent constipation and nausea. A soapsuds enema had been administered about an hour and half ago. We discussed at home interventions the patient was generally agreeable. The patient was able to sit up onto the bedside commode for urination. Patient requested another bedside disimpaction which was performed successfully leading to a large bowel movement. Movantic may be helpful furthermore should the patient require additional opioid analgesics at home. Return precautions discussed. Diagnosis Primary Impression: Constipation Qualified Codes: K59.03 - Drug induced constipation Referrals: Primary Care Physician 2 days Med/Other Pt SpecificInfo: Prescription(s) given Scripts Naloxegol (Movantik) 25 Mg Tab 25 MG PO DAILY for Prevent Constipation, #30 TAB 0 Refills Prov: Jack Rhoades MD 01/06/18 Disposition: 01 DISCHARGE HOME Condition: Stable Jack Rhoades MD Jan 06, 2018 08:17
== END 2018-01-06 10:49 | disposition home or self-care (01) ==
LOC: NEPE 05:17
DX: K59.03 Drug induced constipation (principal); T40.2X5A Adverse effect of other opioids, initial encounter; E03.9 Hypothyroidism, unspecified; E78.00 Pure hypercholesterolemia, unspecified
CPT/HCPCS: 74019; 99283